=== PATIENT | female | born 1985 | race Caucasian/White ===

== ENCOUNTER 2017-04-03 18:51 | Inpatient (IN) | payer OTHER ==
--- NOTE | 2017-04-03 19:38 | ED ---
General Adult HPI - General Chief complaint: Psychiatric Symptoms Stated complaint: suicidal Time Seen by Provider: 04/03/17 19:17 Source: patient, family, RN notes reviewed Mode of arrival: ambulatory Limitations: no limitations - History of Present Illness Initial comments: 31-year-old female with history of bipolar depression and hypothyroidism presenting with a two-week history of suicidal ideation. Patient has developed depression since childhood. She is not currently taking any antidepressant medication. Patient admits to occasional marijuana use. She denies any other street drugs. Denies any alcohol ingestion. Patient states several days ago she took trazodone for difficulty sleeping. She has no pain complaints. Patient states she has had multiple thoughts of committing suicide although she denies any specific plan. She denies any ingestion. She does have a history of cutting but has not made any suicide attempt. Denies chest pain or shortness of breath, denies nausea vomiting or diarrhea, denies fever or chills. - Related Data Home Medications Medication Instructions Recorded Confirmed Levothyroxine Sodium 25 mcg PO DAILY 04/03/17 04/03/17 Levothyroxine Sodium 200 mcg PO DAILY 04/03/17 04/03/17 Allergies Allergy/AdvReac Type Severity Reaction Status Date / Time escitalopram [From Lexapro] Allergy Rash/Hives Verified 04/03/17 19:32 Review of Systems ROS Statement: Those systems with pertinent positive or pertinent negative responses have been documented in the HPI. ROS Other: All systems not noted in ROS Statement are negative. Constitutional: Denies: fever Respiratory: Denies: cough Cardiovascular: Denies: chest pain Endocrine: Reports: fatigue Gastrointestinal: Denies: abdominal pain, nausea, vomiting Neurological: Reports: headache, other (Occasional headache, no headache at this time.) Psychiatric: Reports: depression, suicidal thoughts Past Medical History Past Medical History: Thyroid Disorder Additional Past Medical History / Comment(s): Herpes. History of Any Multi-Drug Resistant Organisms: None Reported Past Surgical History: Section, Cholecystectomy Past Psychological History: Bipolar, Depression Smoking Status: Former smoker Past Alcohol Use History: Rare Past Drug Use History: None Reported, Marijuana General Exam Limitations: no limitations General appearance: alert, in no apparent distress, anxious Head exam: Present: atraumatic, normocephalic Eye exam: Present: PERRL, EOMI ENT exam: Present: normal exam, mucous membranes moist Neck exam: Present: normal inspection, full ROM Respiratory exam: Present: normal lung sounds bilaterally. Absent: respiratory distress Cardiovascular Exam: Present: regular rate, normal rhythm GI/Abdominal exam: Present: soft. Absent: distended, tenderness Rectal exam: Present: deferred Extremities exam: Present: normal inspection. Absent: pedal edema Neurological exam: Present: alert, oriented X3 Psychiatric exam: Present: depressed, flat affect, suicidal ideation Skin exam: Present: warm, dry Course Vital Signs 04/03/17 04/03/17 18:58 21:22 Temperature 97.2 F L 97.4 F L Pulse Rate 72 64 Respiratory 18 18 Rate Blood Pressure 111/67 128/70 O2 Sat by Pulse 98 98 Oximetry Medical Decision Making - Medical Decision Making 31-year-old female with history of bipolar depression presents with a two-week history of suicidal ideation. She denies any suicide attempt. She does not have a plan at this time. With her children's father and 2 young children. Breath alcohol level is 0. Urine drug screen is pending. Patient has had outpatient psychiatric therapy in the past. Patient has had difficulty getting an appointment with [facility] secondary to insurance issues. She was instructed to come to the emergency department with worsening suicidal ideation. 1934: Patient is medically cleared awaiting psychiatric evaluation. 2129: Patient was evaluated by psychiatry and was recommended that the patient be admitted for further psychiatric evaluation and treatment. Diagnosis: Bipolar depression Disposition: Admitted to inpatient psychiatric unit. - Lab Data Lab Results 04/03/17 04/03/17 Range/Units 19:09 21:00 Urine HCG, Qual Not Detected (Not Detectd) Urine Opiates Screen Not Detected (NotDetected) Ur Oxycodone Screen Not Detected (NotDetected) Urine Methadone Screen Not Detected (NotDetected) Ur Propoxyphene Screen Not Detected (NotDetected) Ur Barbiturates Screen Not Detected (NotDetected) U Tricyclic Antidepress Not Detected (NotDetected) Ur Phencyclidine Scrn Not Detected (NotDetected) Ur Amphetamines Screen Not Detected (NotDetected) U Methamphetamines Scrn Not Detected (NotDetected) U Benzodiazepines Scrn Not Detected (NotDetected) Urine Cocaine Screen Not Detected (NotDetected) U Marijuana (THC) Screen Detected H (NotDetected) Disposition Clinical Impression: Depression Disposition: ADMITTED IP TO THIS HOSP Condition: Stable Decision to Admit Reason: Admit from EC Decision Date: 04/03/17 Decision Time: 21:00
[2017-04-03] MEDS ORDERED: ACETAMINOPHEN TAB 325 MG TAB PO PRN (22:56)
[2017-04-03] MEDS ORDERED: MAG HYDROX/AL HYDROX/SIMETH 30 ML CUP PO PRN (22:56)
[2017-04-03] MEDS ORDERED: MAGNESIUM HYDROXIDE 2,400 MG/10 ML CUP PO PRN (22:56)
[2017-04-03] MEDS ORDERED: ZIPRASIDONE 20 MG VIAL IM PRN (22:56)
[2017-04-03] MEDS ORDERED: QUEtiapine 50 MG TAB PO ONE (23:07)
[2017-04-03 23:44] VITALS: BMI 24.3
[2017-04-04] MEDS: LEVOTHYROXINE 100 MCG TAB PO SCH (06:13)
[2017-04-04] MEDS: LEVOTHYROXINE 25 MCG TAB PO SCH (06:13)
[2017-04-04 07:03] VITALS: PULSE 61; TEMP 98
[2017-04-04 08:58] LABS: Basophils # (A) 0.1 k/uL (0-0.2); Basophils % (A) 1 %; CH 29.5; CHCM 33.1; Eosinophils # (A) 0.2 k/uL (0-0.7); Eosinophils % (A) 5 %; HCT 41.6 % (34.0-46.0); HDW 2.33; Luc # (Auto) 0.13; Luc % (Auto) 3; Lymphocytes # (A) 2.5 k/uL (1.0-4.8); Lymphocytes % (A) 51 %; MCH 30.2 pg (25.0-35.0); MCHC 33.7 g/dL (31.0-37.0); MCV 89.5 fL (80.0-100.0); Mean Platelet Volume 7.3; Monocytes # (A) 0.4 k/uL (0-1.0); Monocytes % (A) 9 %; Neutrophils # (A) 1.5 k/uL (1.3-7.7); Neutrophils % (A) 31 %; RBC 4.65 m/uL (3.80-5.40); RDW 12.9 % (11.5-15.5); WBC 4.8 k/uL (3.8-10.6); WBC (Perox) 5.05
[2017-04-04 09:02] LABS: ALT 15 U/L (9-52); AST 20 U/L (14-36); Alkaline Phosphatase 45 U/L (38-126); Anion Gap 11 mmol/L; Blood Urea Nitrogen 9 mg/dL (7-17); Calcium 9.3 mg/dL (8.4-10.2); Carbon Dioxide 27 mmol/L (22-30); Chloride 102 mmol/L (98-107); Glucose 89 mg/dL (74-99); Non-African American GFR(MDRD) >60 (>60 ml/min/1.73 sqM); Potassium 4.1 mmol/L (3.5-5.1); Sodium 140 mmol/L (137-145); Total Bilirubin 0.9 mg/dL (0.2-1.3); Total Protein 7.7 g/dL (6.3-8.2)
[2017-04-04 09:13] LABS: Manual Review Performed
[2017-04-04 09:14] LABS: RBC Morphology Normal
--- NOTE | 2017-04-04 10:35 | P.HP ---
Psychiatric H&P - . H&P Date: 04/04/17 History & Physical: Allergies Allergy/AdvReac Type Severity Reaction Status Date / Time escitalopram [From Lexapro] Allergy Unknown Rash/Hives Verified 04/04/17 05:18 Vital Signs Temp 98.0 F 04/04/17 07:02 Pulse 61 04/04/17 07:02 Resp 16 04/04/17 07:02 BP 89/54 04/04/17 07:02 Pulse Ox 98 04/03/17 23:21 Intake & Output 04/03/17 04/04/17 04/04/17 18:59 06:59 18:59 Weight 63.049 kg 62.341 kg Laboratory Last Values WBC 4.8 k/uL (3.8-10.6) 04/04/17 08:17 RBC 4.65 m/uL (3.80-5.40) 04/04/17 08:17 Hgb 14.0 gm/dL (11.4-16.0) 04/04/17 08:17 Hct 41.6 % (34.0-46.0) 04/04/17 08:17 MCV 89.5 fL (80.0-100.0) 04/04/17 08:17 MCH 30.2 pg (25.0-35.0) 04/04/17 08:17 MCHC 33.7 g/dL (31.0-37.0) 04/04/17 08:17 RDW 12.9 % (11.5-15.5) 04/04/17 08:17 Plt Count 278 k/uL (150-450) 04/04/17 08:17 Neutrophils % 31 % 04/04/17 08:17 Lymphocytes % 51 % 04/04/17 08:17 Monocytes % 9 % 04/04/17 08:17 Eosinophils % 5 % 04/04/17 08:17 Basophils % 1 % 04/04/17 08:17 Neutrophils # 1.5 k/uL (1.3-7.7) 04/04/17 08:17 Lymphocytes # 2.5 k/uL (1.0-4.8) 04/04/17 08:17 Monocytes # 0.4 k/uL (0-1.0) 04/04/17 08:17 Eosinophils # 0.2 k/uL (0-0.7) 04/04/17 08:17 Basophils # 0.1 k/uL (0-0.2) 04/04/17 08:17 Manual Slide Review Performed 04/04/17 08:17 RBC Morphology Normal 04/04/17 08:17 Sodium 140 mmol/L (137-145) 04/04/17 08:17 Potassium 4.1 mmol/L (3.5-5.1) 04/04/17 08:17 Chloride 102 mmol/L (98-107) 04/04/17 08:17 Carbon Dioxide 27 mmol/L (22-30) 04/04/17 08:17 Anion Gap 11 mmol/L 04/04/17 08:17 BUN 9 mg/dL (7-17) 04/04/17 08:17 Creatinine 0.77 mg/dL (0.52-1.04) 04/04/17 08:17 Est GFR (MDRD) Af Amer >60 (>60 ml/min/1.73 sqM) 04/04/17 08:17 Est GFR (MDRD) Non-Af >60 (>60 ml/min/1.73 sqM) 04/04/17 08:17 Glucose 89 mg/dL (74-99) 04/04/17 08:17 Calcium 9.3 mg/dL (8.4-10.2) 04/04/17 08:17 Total Bilirubin 0.9 mg/dL (0.2-1.3) 04/04/17 08:17 AST 20 U/L (14-36) 04/04/17 08:17 ALT 15 U/L (9-52) 04/04/17 08:17 Alkaline Phosphatase 45 U/L (38-126) 04/04/17 08:17 Total Protein 7.7 g/dL (6.3-8.2) 04/04/17 08:17 Albumin 4.4 g/dL (3.5-5.0) 04/04/17 08:17 TSH 63.400 mIU/L (0.465-4.680) H 04/04/17 08:17 Urine HCG, Qual Not Detected (Not Detectd) 04/03/17 21:00 Urine Opiates Screen Not Detected (NotDetected) 04/03/17 19:09 Ur Oxycodone Screen Not Detected (NotDetected) 04/03/17 19:09 Urine Methadone Screen Not Detected (NotDetected) 04/03/17 19:09 Ur Propoxyphene Screen Not Detected (NotDetected) 04/03/17 19:09 Ur Barbiturates Screen Not Detected (NotDetected) 04/03/17 19:09 U Tricyclic Antidepress Not Detected (NotDetected) 04/03/17 19:09 Ur Phencyclidine Scrn Not Detected (NotDetected) 04/03/17 19:09 Ur Amphetamines Screen Not Detected (NotDetected) 04/03/17 19:09 U Methamphetamines Scrn Not Detected (NotDetected) 04/03/17 19:09 U Benzodiazepines Scrn Not Detected (NotDetected) 04/03/17 19:09 Urine Cocaine Screen Not Detected (NotDetected) 04/03/17 19:09 U Marijuana (THC) Screen Detected (NotDetected) H 04/03/17 19:09 04/04/17 10:17 DATE OF SERVICE: 04/04/2017 IDENTIFYING DATA: This patient is a due to-year-old female, admitted to the mental health unit from the emergency room. Patient and came to the emergency room due to her suicidal ideation. HISTORY OF PRESENT ILLNESS: The patient presents with report of suicidal ideation, stress, "meltdown". Patient reports that she has been having stress at work and at home. States that at work [employer] she was being harassed by her coworkers which one of those was her manager drilling. She stated that she can work with men very well but they began to harass her calling her whore. She reports also that she and her have been having marital conflict for a number of years and that she recently decided to get the paperwork for divorce, but she has hidden it, not telling her that she has it. She states that she gets depressed and then suicidal, but this suicide ideation is not chronic but only when she is overwhelmed. Mobile crisis team was working with her on a daily basis to try to avoid hospitalization. She states that she has received care in the past primarily counseling, with some trials of medication, that she can no longer remember the names of. States that 2 of them as gave her severe nightmares and one gave her a total body rash and it began with the letter L. Reports that the counselor told her that she had manic-depressive disorder. Asked her to describe her different states she reports periods of hyperactivity with speaking fast, but no decreased need for sleep, and no risk taking behavior. Her depressive episodes appear to be short and again when she becomes overwhelmed she has thoughts of suicide, but has never acted on those thoughts. She does give history of starting to cut herself as a teenager, never needing sutures, never being admitted to a psychiatric hospital. She does endorse a sense of feeling empty inside, and overwhelming loneliness. She states that she does not think she would ever do suicide because of HER-2 children. She states they are what keeps her going. She denies ever experiencing voices in her head when not around anybody, TV giving her messages, feeling controlled by others, or others being able to insert or withdraw her thoughts. Today in goal group she circled that she was suicidal, but to me she stated she was not suicidal and had no suicide plans. She did report she is depressed but she gives no indication of being depressed. She does report a few days of having problems sleeping but this is not a decreased need for sleep. She states that she usually smokes marijuana in order to sleep Staff reported today she circled suicidal in her group. PAST PSYCHIATRIC HISTORY: Counseling at [facility], trial of at least 2-3 antidepressants, nightmares from 2 and a rash from 1. Denies ever attempting suicide but reports when being overwhelmed with emotions she then thinks of suicide. No psychiatric admissions. PAST MEDICAL HISTORY: None. ALLERGIES: Record shows escitalopram, but this is not verified. [facility] did not have record of any medication beginning with L. CHEMICAL DEPENDENCY HISTORY: Patient states that when she was in the [employer] she drank heavily stopped when she was with her first child, relapsed once after he was born and since then has not been using. States that she began smoking marijuana in her teens around 14 or 15, she also has tried acid and mushrooms and ecstasy. States she would prefer to use ecstasy but it was too expensive. She denies any use of injecting drugs or snorting. She denies misusing opioids that she was prescribed she denies any admission to rehab units area. FAMILY PSYCHIATRIC HISTORY: Unknown. FAMILY CHEMICAL DEPENDENCY HISTORY: Unknown. 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 She does not have her DD 214 and [facility] SOCIAL HISTORY: [Patient is in her second marriage and is struggling with that and believes that she will end up . States that her does not want to change and has refused to go to counseling. She has 2 children a 7-year -old who has been raised by her current but is not his child, and a 4- year-old who is her 's biological child. They have been together for approximately 7 years and for 3. States that she was once before. Working at [employer], recently quit [employer]. MENTAL STATUS EXAM: Patient alert and oriented 3, good eye contact, groomed in street clothing. Speech normal volume, rate and production. Coherent, logical and goal directed thought process. No GENET, no FOI. [No TB/TW/ TI] Denied auditory and visual hallucinations. Denied paranoid ideation, delusions or IOR. Memory grossly intact Cognition average Mood labile, shifting from dysphoria to euthymia laughing and joking, affect full range normal intensity, congruent with mood. Denies suicidal ideation, denies homicidal ideation. Insight limited; Judgment grossly intact for treatment purposes . STRENGTHS: [Housing and income]. WEAKNESSES: No coping skills. IMPRESSIONS: 31-year-old female admitted to the unit after she was seen by [facility] who told her to calm as they could not provide outpatient care immediately. She states she does have an appointment with them on Saturday but that is for her to provide all of her documentation so that they can begin to open her in the [facility]. She reports that she had suicidal ideation and to the EPS nurse it was reported that she has a chronically, with multiple plans. Today patient denies suicidal ideation denies plans to investment underwriter however she circled being suicidal in her morning group. She gives history of being treated in therapy at [facility], and being given a diagnosis of bipolar. On evaluation she does not appear to meet the criteria for ever having a manic or hypomanic episode. Her depressive periods do appeared be due to stress/situations. She does give symptoms that meet borderline personality disorder. History of beginning superficial cutting as a teenager. Fortunato relationships with men but not with females, a sense of being empty inside. No evidence of micropsychotic episodes. Evidence of labile moods, Mobile crisis team attempting to divert admission, she presents to ER with what appeared to be severe depression, rocking back and forth, with report of suicidal ideation chronically with multiple plans. Today appearing euthymic. Has labile mood. ADMISSION DIAGNOSES: Suicide ideation, resolved R/O Adjustment disorder, with depressed mood VS R/O Borderline personality disorder Cluster B traits Cannabis use, severe PLAN: Continue inpatient psychiatric admission for safety, diagnostic clarification and treatment. Suicide precautions and every 15 minutes. Trazodone for sleep Patient needs to be opened at [facility], DBT should be provided. Social work to begin discharge planning with [facility], family meeting with . Milieu therapy LOS 2 to 3 days. 04/04/17 11:03 04/04/17 12:36
[2017-04-04] MEDS ORDERED: traZODone HCL 50 MG TAB PO SCH (21:00)
[2017-04-05 06:19] VITALS: BP 86/47; RESP 14
[2017-04-05] MEDS: LEVOTHYROXINE 100 MCG TAB PO SCH (06:21)
[2017-04-05] MEDS: LEVOTHYROXINE 25 MCG TAB PO SCH (06:21)
--- NOTE | 2017-04-05 08:12 | P.PN ---
Progress Note - Text INTERVERAL HISTORY: TSH elevated, will ask hospitalist to address MENTAL STATUS EXAM: PLAN: MENTAL STATUS EXAM: Patient alert and oriented 3, good eye contact, groomed in street clothing. Speech normal volume, rate and production. Coherent, logical and goal directed thought process. No GENET, no FOI. [No TB/TW/ TI] Denied auditory and visual hallucinations. Denied paranoid ideation, delusions or IOR. Memory grossly intact Cognition average Mood labile, shifting from dysphoria to euthymia laughing and joking, affect full range normal intensity, congruent with mood. Denies suicidal ideation, denies homicidal ideation. Insight limited; Judgment grossly intact for treatment purposes . IMPRESSIONS: 31-year-old female admitted to the unit after she was seen by [facility] who told her to calm as they could not provide outpatient care immediately. She states she does have an appointment with them on Saturday but that is for her to provide all of her documentation so that they can begin to open her in the [facility]. She reports that she had suicidal ideation and to the EPS nurse it was reported that she has a chronically, with multiple plans. Today patient denies suicidal ideation denies plans to senior copywriter however she circled being suicidal in her morning group. She gives history of being treated in therapy at [facility], and being given a diagnosis of bipolar. On evaluation she does not appear to meet the criteria for ever having a manic or hypomanic episode. Her depressive periods do appeared be due to stress/situations. She does give symptoms that meet borderline personality disorder. History of beginning superficial cutting as a teenager. Fortunato relationships with men but not with females, a sense of being empty inside. No evidence of micropsychotic episodes. Evidence of labile moods, Mobile crisis team attempting to divert admission, she presents to ER with what appeared to be severe depression, rocking back and forth, with report of suicidal ideation chronically with multiple plans. Today appearing euthymic. Has labile mood. ADMISSION DIAGNOSES: Suicide ideation, resolved R/O Adjustment disorder, with depressed mood VS R/O Borderline personality disorder Cluster B traits Cannabis use, severe DISCHARGE DIAGNOSES: PLAN: Continue inpatient psychiatric admission for safety, diagnostic clarification and treatment. Suicide precautions and every 15 minutes. Trazodone for sleep Patient needs to be opened at [facility], DBT should be provided. Social work to begin discharge planning with [facility], family meeting with . Milieu therapy LOS 2 to 3 days. 04/04/17 11:03 04/04/17 12:36
[2017-04-05] MEDS ORDERED: FLUoxetine HCL 20 MG CAP PO SCH (11:00)
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
--- NOTE | 2017-04-07 11:13 | CONS ---
REASON FOR CONSULTATION: Medical management of hypothyroidism with elevated TSH level and multiple other medical problems. HISTORY OF PRESENT ILLNESS: Ms. Schreiber is a 31-year-old female with known history of bipolar disorder, depression and hypothyroidism, presented with a two week history of suicidal ideation. The patient has been having depression for a long time. The patient is noncompliant with antidepressant medications as well as thyroid supplements. Otherwise, the patient denied any chest pains, nausea, vomiting or abdominal pain. No diarrhea, no dysuria, no hematuria. No recent illnesses noted. The patient does use marijuana on a daily basis and has been using more often recently. Denied any alcohol ingestion and denied any IV drug abuse. She is currently have no suicidal ideation. The patient also states that she never had a plan for suicide. No recent sick contact. No recent travel. REVIEW OF SYSTEMS: CONSTITUTIONAL: No fever, no chills, no weakness. RESPIRATORY: No cough or sputum production. CARDIOVASCULAR: No chest pain. No short of breath. No leg swelling. ABDOMEN: No nausea, vomiting, abdominal pain. GENITOURINARY: No dysuria. ENDOCRINE: Denied any heat or cold intolerance. Her TSH is high. PSYCHIATRIC: Depressed. Denied any suicidal ideations. All other review of systems negative except as above. PAST MEDICAL HISTORY: Depression, hypothyroidism, history of herpes. PAST SURGICAL HISTORY: , cholecystectomy. PSYCHOSOCIAL HISTORY: Bipolar disorder and depression. SOCIAL HISTORY: The patient is a former smoker and does use marijuana on a daily basis. Denied any alcohol use. Denied any drugs IVDA. HOME MEDICATIONS: Levothyroxine 225 mcg p.o. daily. ALLERGIES: LEXAPRO. FAMILY HISTORY: Grandfather had hypertension and diabetes mellitus. Mother had lung cancer and hypothyroidism also runs in the family as per the patient. PHYSICAL EXAMINATION: Lying in bed comfortable. Awake and alert x3. Appears to be in no apparent distress. VITALS: Blood pressure 106/60, pulse rate 64, respirations 16, temperature ( ), pulse ox 98% on room air. HEENT: Atraumatic, normocephalic. NECK: Supple. No JVD. CVS: S1, S2 heard. No murmurs, no gallops. LUNGS: Bilateral air entry is present. No labored breathing. ABDOMEN: Soft, nontender. Bowel sounds are heard. DISABILITY REPRESENTATIVE: Alert and oriented x3. No focal deficits. EXTREMITIES: No edema. Pulses palpable bilaterally. No clubbing or cyanosis. PSYCHIATRIC: Cooperative. LABORATORY DATA: WBC 4.8, hemoglobin 14, platelets 278. Sodium 140, potassium 4.1, chloride 102, bicarb 27. BUN 9, creatinine 0.77. TSH 63.4. ( ) positive for marijuana. IMPRESSION: 1. Hypothyroidism with elevated TSH level. Patient was started on levothyroxine 225 mcg daily. The patient is noncompliant with her ( ). Recommend to follow with her mica plate layer in the next 4-6 weeks for recheck TSH and free T3 and T4 levels. 2. Marijuana use. 3. Depression with suicidal ideation. PLAN: The patient will be continued on levothyroxine and counseled for medication compliance as well as marijuana abuse. Will continue the current antidepressant medications as per psychiatry and will follow closely. Further recommendations based on clinical course. Thank you for your consult. GI
== END 2017-04-05 14:17 | disposition home or self-care (01) | DRG 882 ==
LOC: EC 18:51 → 3MHU 21:04
PROVIDERS: ADMIT Psychiatry & Neurology Addiction Medicine; ATTEND Psychiatry & Neurology Addiction Medicine
DX: F43.20 Adjustment disorder, unspecified (principal); R45.851 Suicidal ideations; Z91.19 Patient's noncompliance with other medical treatment and regimen; F31.9 Bipolar disorder, unspecified; F60.3 Borderline personality disorder; E03.9 Hypothyroidism, unspecified; F12.90 Cannabis use, unspecified, uncomplicated; Z63.5 Disruption of family by separation and divorce; Z87.891 Personal history of nicotine dependence; Z91.5 Personal history of self-harm; Z90.49 Acquired absence of other specified parts of digestive tract; Z79.899 Other long term (current) drug therapy
CPT/HCPCS: 80053; 80306; 81025; 82075; 84443; 85025; 99285